=== PATIENT | female | born 1980 | race Caucasian/White ===

== ENCOUNTER 2019-10-22 17:35 | Emergency (ER) | payer OTHER, SELFPAY ==
[~2019-10-22] VITALS: Ht 177.8 cm; Wt 99.2 kg
[2019-10-22 18:14] LABS: BASOPHILS # (AUTO) 0.04 x10^3/uL (0-0.1); BASOPHILS % (AUTO) 0 % (0-1); EOSINOPHILS # (AUTO) 0.08 x10^3/uL (0-0.4); EOSINOPHILS % (AUTO) 1 % (1-7); LYMPHOCYTES # (AUTO) 1.43 x10^3/uL (1-3.4); LYMPHOCYTES % (AUTO) 15 % (22-44); MD NO; MEAN CORPUSCULAR HEMOGLOBIN 31.3 pg (27.0-34.8); MEAN CORPUSCULAR HGB CONC 33.7 g/dL (32.4-35.8); MEAN PLATELET VOLUME 7.7 fL (7.4-10.4); MONOCYTES # (AUTO) 0.49 x10^3/uL (0.2-0.8); MONOCYTES % (AUTO) 5 % (2-9); NEUTROPHILS # (AUTO) 7.41 x10^3/uL (1.8-6.8); NEUTROPHILS % (AUTO) 78 % (42-75); PLATELET COUNT 223 x10^3/uL (130-400); RED BLOOD COUNT 3.84 x10^6/uL (3.82-5.3); RED CELL DISTRIBUTION WIDTH 13.1 % (9.6-15.2)
[2019-10-22 18:25] LABS: ALANINE AMINOTRANSFERASE 27 U/L (12-78); ALBUMIN 3.3 g/dL (3.4-5.0); ANION GAP 7 mmol/L (5-15); CALCIUM 9.1 mg/dL (8.5-10.1); CHLORIDE 105 mmol/L (98-107)
[2019-10-22 18:28] LABS: ALKALINE PHOSPHATASE 76 U/L (45-117); BILIRUBIN,TOTAL 0.3 mg/dL (0.2-1.0); CREATININE 0.62 mg/dL (0.55-1.02); TOTAL PROTEIN 7.8 g/dL (6.4-8.2)
--- NOTE | 2019-10-22 18:41 | NUR ---
BEDSIDE REPORT FROM JOSE R WOODY. PT CARE TRANSFERRED AT THIS TIME. VASQUEZ.
--- NOTE | 2019-10-22 18:55 | NUR ---
PT CAME INTO ED TODAY DUE TO SPIDER BITE, BELIEVES IT WAS A BLACK . PT IS 28 WEEKS AND STATES THAT SHE WAS "CONCERNED BECAUSE OF MY ." PT IS NAD, CMS INTACT, GROSS NEURO INTACT, APPEARS COMFORTABLE, CALL LIGHT ON LAP, DENIES ADDITIONAL NEEDS AT THIS TIME. WAITING FOR RECHECK. WCTM.
[2019-10-22 19:29] VITALS: BP 117/71
--- NOTE | 2019-10-22 19:30 | NUR ---
Patient given discharge instructions and they have confirmed that they understand the instructions. Patient ambulatory with steady gait. VSS. NAD. P/W/D. denies additional questions or needs at this time. no pt belongings left in room after dc.
== END 2019-10-22 20:08 | disposition home or self-care (01) ==
LOC: ED 19:54
DX: S60.562A Insect bite (nonvenomous) of left hand, initial encounter (principal); R10.9 Unspecified abdominal pain; W57.XXXA Bitten or stung by nonvenomous insect and other nonvenomous arthropods, initial encounter; Y93.89 Activity, other specified; Y92.098 Other place in other non-institutional residence as the place of occurrence of the external cause; Y99.8 Other external cause status
CPT/HCPCS: 36415; 80053; 85025; 99283